=== PATIENT | female | born 2000 | race African-American/Black ===

== ENCOUNTER 2023-06-17 21:38 | Emergency (ER) | payer MEDICAID ==
[~2023-06-17] VITALS: Ht 167.6 cm; Wt 60.0 kg
[2023-06-17 21:47] VITALS: BP 138/80; TEMP 98; O2SAT 99
[2023-06-17] MEDS ORDERED: DEXAMETHASONE 4MG TABLET PO ONE (22:00)
[2023-06-17] MEDS ORDERED: IPRATROPIUM/ALBUTEROL 0.5-3(2.5)MG/3ML NEB HHN ONE (22:00)
[2023-06-17 22:04] VITALS: PULSE 88; RESP 18
[2023-06-17] MEDS ORDERED: IPRATROPIUM BROMIDE (0.02%) 0.5MG/2.5ML NEB HHN STA (22:57)
[2023-06-17] MEDS ORDERED: ALBUTEROL (0.083%) 2.5MG/3ML NEB HHN STA (22:57)
[2023-06-17] MEDS ORDERED: MAGNESIUM 2 G PREMIX 50 ML IV ONE (23:00)
== END 2023-06-18 00:12 | disposition left against medical advice (07) ==
LOC: ER 21:38
DX: J45.901 Unspecified asthma with (acute) exacerbation (principal)
CPT/HCPCS: 94640; 93005; 99284; J8540; Z7610 ×4; 99283; J3475